=== PATIENT | female | born 1940 | race Caucasian/White ===

== ENCOUNTER 2023-07-05 11:37 | Emergency (ER) | payer OTHER ==
[~2023-07-05] VITALS: Ht 162.6 cm; Wt 63.0 kg
[2023-07-05 12:45] VITALS: BP 130/74
[2023-07-05 14:40] VITALS: PULSE 62; RESP 14; O2SAT 98
[2023-07-05] MEDS ORDERED: CEPH500C PO (15:15)
== END 2023-07-05 16:12 | disposition home or self-care (01) ==
LOC: EDBD 11:37 → ER 11:37
DX: S01.01XA Laceration without foreign body of scalp, initial encounter (principal); S29.012A Strain of muscle and tendon of back wall of thorax, initial encounter; S46.912A Strain of unspecified muscle, fascia and tendon at shoulder and upper arm level, left arm, initial encounter; R51.9 Headache, unspecified; E11.9 Type 2 diabetes mellitus without complications; Z79.899 Other long term (current) drug therapy; Z88.0 Allergy status to penicillin; Z88.2 Allergy status to sulfonamides; W01.0XXA Fall on same level from slipping, tripping and stumbling without subsequent striking against object, initial encounter; Y93.89 Activity, other specified; Y92.89 Other specified places as the place of occurrence of the external cause; Y99.8 Other external cause status
CPT/HCPCS: 12002; 70450; 72128; 73060